=== PATIENT | female | born 1980 | race American Indian/Alaskan Native ===

== ENCOUNTER 2016-11-22 09:46 | Emergency (ER) | payer MEDICAID ==
[~2016-11-22] VITALS: Ht 165.1 cm; Wt 93.0 kg
[~2016-11-22 09:46] MED LIST: CITA40TA5 PO; FAMO10TA77 PO; FAMO20TA7 PO; LORA0.5T PO; NAPR375T PO; NAPR500T8 PO; OMEP-110 PO; PANT40TA3; SUMA50TA3 PO; TOPI-33 PO; VENL25TA PO; ZOLP10TA PO
[2016-11-22] MEDS ORDERED: ESCI10TA10 PO (10:33)
[2016-11-22] MEDS ORDERED: MORPHINE SULFATE 4 MG/ML, 1ML ONE ×2 (11:22→12:24)
[2016-11-22] MEDS ORDERED: ONDANSETRON 2MG/ML, 2ML ONE (11:22)
[2016-11-22] MEDS: MORPHINE SULFATE 4 MG/ML, 1ML IVPush PRN ×2 (11:24→12:26)
[2016-11-22] MEDS ORDERED: ONDANSETRON 2MG/ML, 2ML IVPush ONE (11:30)
[2016-11-22] MEDS ORDERED: SODIUM CHLORIDE 0.9% 1,000ML IVBOLUS ONE (11:30)
[2016-11-22] MEDS ORDERED: SODIUM CHLORIDE FLUSH 10ML SYR IVF ONE (11:30)
[2016-11-22 11:40] LABS: ASPARTATE AMINO TRANSFERASE 13 U/L (15-37); BLOOD UREA NITROGEN 11 mg/dL (7-18)
[2016-11-22] MEDS ORDERED: OMNIPAQUE 350 MG/ML, 100ML BOTTLE ONE (13:30)
[2016-11-22] MEDS ORDERED: KETOROLAC 30 MG/1 ML ONE (13:54)
[2016-11-22] MEDS ORDERED: KETOROLAC 30 MG/1 ML IVPush ONE (14:00)
[2016-11-22 14:13] VITALS: BP 109/72
== END 2016-11-22 14:25 | disposition home or self-care (01) ==
LOC: ED 13:39
DX: N83.202 Unspecified ovarian cyst, left side (principal); N83.201 Unspecified ovarian cyst, right side; R10.9 Unspecified abdominal pain; R11.0 Nausea
CPT/HCPCS: 36415; 74177; 76830; 80053; 81003; 83690; 85025; 96361; 96374; 96375; 96376; 99285; J1885; J2405; J7030; Q9967

== ENCOUNTER 2017-06-20 17:44 | Emergency (ER) | payer MEDICAID ==
[~2017-06-20] VITALS: Ht 165.1 cm; Wt 85.4 kg
[~2017-06-20 17:44] MED LIST changes: +ESCI10TA10 PO; -TOPI-33 PO; +TOPI25TA8 PO
[2017-06-20 18:31] VITALS: BP 115/76
[2017-06-20 21:00] LABS: RAPID INFLUENZA A Negative (Negative); RAPID INFLUENZA B Negative (Negative)
== END 2017-06-20 21:23 | disposition home or self-care (01) ==
LOC: ED 21:15
DX: B34.9 Viral infection, unspecified (principal); K21.9 Gastro-esophageal reflux disease without esophagitis; I10 Essential (primary) hypertension; G43.909 Migraine, unspecified, not intractable, without status migrainosus
CPT/HCPCS: 71020; 87400; 99285

== ENCOUNTER 2017-09-13 10:36 | Emergency (ER) | payer MEDICAID, OTHER ==
[~2017-09-13] VITALS: Ht 165.1 cm; Wt 83.6 kg
[2017-09-13 10:37] VITALS: BP 131/80
[2017-09-13] MEDS ORDERED: FLUORESCEIN OPHTHALMIC 1 MG STRIP ONE (11:18)
[2017-09-13] MEDS ORDERED: PROPARACAINE OPHTH 0.5%, 15ML ONE (11:18)
[2017-09-13] MEDS ORDERED: PROPARACAINE OPHTH 0.5%, 15ML EACHEYE ONE (11:30)
[2017-09-13] MEDS ORDERED: FLUORESCEIN OPHTHALMIC 1 MG STRIP EACHEYE ONE (11:30)
== END 2017-09-13 11:41 | disposition home or self-care (01) ==
LOC: ED 11:30
DX: H00.025 Hordeolum internum left lower eyelid (principal); I10 Essential (primary) hypertension; K21.9 Gastro-esophageal reflux disease without esophagitis; F17.200 Nicotine dependence, unspecified, uncomplicated
CPT/HCPCS: 99283

== ENCOUNTER 2017-12-13 11:30 | Emergency (ER) | payer MEDICAID ==
[~2017-12-13] VITALS: Ht 167.6 cm; Wt 75.0 kg
[2017-12-13 11:44] VITALS: BP 137/82
[2017-12-13] MEDS ORDERED: MAALOX/HYOSCYAMINE/LIDOCAINE 45 ML BTL PO ONE (12:30)
[2017-12-13] MEDS ORDERED: MAALOX/HYOSCYAMINE/LIDOCAINE 45 ML BTL ONE (12:35)
[2017-12-13 12:49] LABS: BASOPHILS # (AUTO) 0.02 x10^3/uL (0-0.1); BASOPHILS % (AUTO) 1 % (0-1); EOSINOPHILS # (AUTO) 0.11 x10^3/uL (0-0.4); EOSINOPHILS % (AUTO) 2 % (1-7); LYMPHOCYTES # (AUTO) 1.48 x10^3/uL (1-3.4); LYMPHOCYTES % (AUTO) 32 % (22-44); MD NO; MEAN CORPUSCULAR HEMOGLOBIN 28.7 pg (27.0-34.8); MEAN CORPUSCULAR HGB CONC 32.8 g/dL (32.4-35.8); MEAN CORPUSCULAR VOLUME 87.6 fL (80-100); MEAN PLATELET VOLUME 8.1 fL (7.4-10.4); MONOCYTES # (AUTO) 0.25 x10^3/uL (0.2-0.8); MONOCYTES % (AUTO) 5 % (2-9); NEUTROPHILS # (AUTO) 2.73 x10^3/uL (1.8-6.8); NEUTROPHILS % (AUTO) 59 % (42-75); PLATELET COUNT 197 x10^3/uL (130-400); RED BLOOD COUNT 4.35 x10^6/uL (3.82-5.3); RED CELL DISTRIBUTION WIDTH 13.7 % (9.6-15.2)
[2017-12-13 12:54] LABS: ALANINE AMINOTRANSFERASE 16 U/L (12-78); ALBUMIN 3.5 g/dL (3.4-5.0); ANION GAP 6 mmol/L (5-15); CALCIUM 8.5 mg/dL (8.5-10.1); CHLORIDE 110 mmol/L (98-107); CREATININE 0.91 mg/dL (0.55-1.02)
[2017-12-13 12:56] LABS: ALKALINE PHOSPHATASE 52 U/L (45-117); BILIRUBIN,TOTAL 0.4 mg/dL (0.2-1.0); TOTAL PROTEIN 6.6 g/dL (6.4-8.2)
[2017-12-13 13:23] LABS: MICROSCOPIC NOT IND
[2017-12-13 13:40] LABS: CULTURE INDICATED? NO
[2017-12-13] MEDS ORDERED: OXYcodone/APAP 5/325MG TABLET ONE (13:59)
[2017-12-13] MEDS ORDERED: OXYcodone/APAP 5/325MG TABLET PO ONE (14:00)
== END 2017-12-13 14:17 | disposition home or self-care (01) ==
LOC: ED 14:00
DX: K29.00 Acute gastritis without bleeding (principal); I10 Essential (primary) hypertension; K21.9 Gastro-esophageal reflux disease without esophagitis; F17.200 Nicotine dependence, unspecified, uncomplicated
CPT/HCPCS: 36415; 76700; 80053; 81003; 83690; 85025; 99285

== ENCOUNTER → 2018-03-27 | Outpatient (CLI) | payer MEDICAID | END | disposition home or self-care (01) | LOC: RAD 09:24 | PROVIDERS: ATTEND Internal Medicine Gastroenterology | DX: R10.13 Epigastric pain (principal); R11.2 Nausea with vomiting, unspecified; R14.0 Abdominal distension (gaseous); K59.00 Constipation, unspecified; F41.9 Anxiety disorder, unspecified; E66.9 Obesity, unspecified | CPT/HCPCS: 74018; 78226; A9537 ==

== ENCOUNTER → 2018-09-21 | Outpatient (CLI) | payer MEDICAID | END | disposition home or self-care (01) | LOC: RAD 07:17 | PROVIDERS: ATTEND Otolaryngology | DX: J32.0 Chronic maxillary sinusitis (principal) | CPT/HCPCS: 70486; 74220 ==